=== PATIENT | male | born 1975 | race African-American/Black ===

== ENCOUNTER 2017-10-11 14:34 | Emergency (ER) | payer SELFPAY | END 2017-10-11 17:11 | disposition home or self-care (01) | LOC: ER 14:34 | DX: A59.9 Trichomoniasis, unspecified (principal); I49.8 Other specified cardiac arrhythmias | CPT/HCPCS: 93005; 99284-25 ==

== ENCOUNTER 2020-02-27 08:17 | Emergency (ER) | payer MEDICAID ==
[~2020-02-27] VITALS: Ht 177.8 cm; Wt 100.0 kg
--- NOTE | 2020-02-27 08:44 | PHYS DOC ---
Past Medical History Past Medical History: No Pertinent History Past Surgical History: No Surgical History Smoking Status: Current Every Day Smoker Alcohol Use: Occasionally Drug Use: Marijuana General Adult EDM: Chief Complaint: ABDOMINAL PAIN HPI: HPI: Patient is a 44-year-old otherwise healthy male who presents with a several day history of abdominal pain and bloating. He states it is particularly bad when he eats anything spicy or greasy like a slice of pizza. He states after he eats something like that his belly bloats up and he becomes nauseous. He does have some upper abdominal discomfort. He is felt nauseous but no vomiting he states he has passed gas. He has not had any previous abdominal surgeries. He denies any melena hematemesis or hematochezia. [] Review of Systems: Review of Systems: Constitutional: Denies fever or chills. [] Eyes: Denies change in visual acuity. [] HENT: Denies nasal congestion or sore throat. [] Respiratory: Denies cough or shortness of breath. [] Cardiovascular: Denies chest pain or edema. [] GI: Per HPI [] : Denies dysuria. [] Musculoskeletal: Denies back pain or joint pain. [] Integument: Denies rash. [] Neurologic: Denies headache, focal weakness or sensory changes. [] Endocrine: Denies polyuria or polydipsia. [] Lymphatic: Denies swollen glands. [] Psychiatric: Denies depression or anxiety. [] Heart Score: Risk Factors: Risk Factors: DM, Current or recent (<one month) smoker, HTN, HLP, family history of CAD, obesity. Risk Scores: Score 0 - 3: 2.5% MACE over next 6 weeks - Discharge Home Score 4 - 6: 20.3% MACE over next 6 weeks - Admit for Clinical Observation Score 7 - 10: 72.7% MACE over next 6 weeks - Early Invasive Strategies Allergies: Allergies: Allergies Coded Allergies Type Severity Reaction Last Updated Verified No Known Drug Allergies 11/25/14 No Physical Exam: PE: Constitutional: Well developed, well nourished, no acute distress, non-toxic appearance. [] HENT: Normocephalic, atraumatic, bilateral external ears normal, oropharynx moist, no oral exudates, nose normal. [] Eyes: PERRLA, EOMI, conjunctiva normal, no discharge. [] Neck: Normal range of motion, no tenderness, supple, no stridor. [] Cardiovascular:Heart rate regular rhythm, no murmur [] Lungs & Thorax: Bilateral breath sounds clear to auscultation [] Abdomen: Bowel sounds normal, soft, no tenderness, no masses, no pulsatile masses. [] Skin: Warm, dry, no erythema, no rash. [] Back: No tenderness, no CVA tenderness. [] Extremities: No tenderness, no cyanosis, no clubbing, ROM intact, no edema. [] Neurologic: Alert and oriented X 3, normal motor function, normal sensory function, no focal deficits noted. [] Psychologic: Anxious. [] Current Patient Data: Vital Signs: Vital Signs Date Time Temp Pulse Resp B/P (MAP) Pulse Ox O2 Delivery O2 Flow Rate FiO2 02/27/20 08:25 98.4 89 16 139/91 (107) 97 Room Air 98.4 EKG: EKG: [] Radiology/Procedures: Radiology/Procedures: []PROCEDURE: CT ABD PELV W/ IV CONTRST ONLY CT SCAN OF THE ABDOMEN AND PELVIS WITH IV CONTRAST. History: Abdominal pain Comparison:None. Procedure: Contiguous axial images of the abdomen and pelvis were performed after the administration of 75 cc of Omni 300 IV contrast. Oral contrast: No. Findings: The colon is collapsed and is apparent mild wall thickening. There is no surrounding inflammation. The appendix is normal. The gallbladder appears normal. Liver: Unremarkable Spleen: Unremarkable Pancreas: Unremarkable Adrenal Glands: Unremarkable Kidneys: Unremarkable There is no mass or lymphadenopathy. There is no free air. There is no free fluid. The urinary bladder is collapsed. Impression: The colon is collapsed and not well evaluated. There is apparent mild wall thickening suggesting pancolitis which could be inflammatory or infectious. Course & Med Decision Making: Course & Med Decision Making Pertinent Labs and Imaging studies reviewed. (See chart for details) [ED course: Evaluation reveals a 44-year-old healthy male with a history of postprandial bloating and early satiety. CT scan showed a collapsed colon with mild wall thickening consistent with colitis. I spoke with Dr. Pena her glass etcher helper and we reviewed the findings of his lab studies and we both agreed that this is most likely gastroesophageal reflux versus a colitis. He has not had any diarrhea which would really go against colitis. I am to go ahead and start him on a proton pump inhibitor.] Clau Disclaimer: Clau Disclaimer: This electronic medical record was generated, in whole or in part, using a voice recognition dictation system. Departure Departure Impression: Primary Impression: Gastroesophageal reflux disease Qualified Codes: K21.9 - Gastro-esophageal reflux disease without esophagitis Disposition: HOME, SELF-CARE Condition: STABLE Referrals: NO PCP (PCP) DIGNA PENA MD Call Dr. Pena's office to schedule a follow-up. Patient Instructions: Diet for Gastroesophageal Reflux Disease, Adult, Gastroesophageal Reflux Disease, Adult Scripts Pantoprazole Sodium (PROTONIX ) 40 Mg Tablet. 40 MG PO DAILYAC for GERD for 30 Days, #30 TAB 3 Refills Prov: ZACH MARRERO DO 02/27/20 ZACH MARRERO DO February 27, 2020 08:44
[2020-02-27 08:50] LABS: BASO # 0.1 x10^3/uL (0.0-0.2); BASO % 1 % (0-3); EOS # 0.1 x10^3/uL (0.0-0.7); EOS % 1 % (0-3); HEMATOCRIT 46.3 % (39.0-53.0); HEMOGLOBIN 15.8 g/dL (13.0-17.5); LYMPH # 1.3 x10^3/uL (1.0-4.8); LYMPH % 25 % (24-48); MEAN CORPUSCULAR HEMOGLOBIN 33 pg (25-35); MEAN CORPUSCULAR HGB CONC 34 g/dL (31-37); MEAN CORPUSCULAR VOLUME 95 fL (79-100); MONO # 0.6 x10^3/uL (0.0-1.1); MONO % 11 % (0-9); NEUT # 3.3 x10^3/uL (1.8-7.7); NEUT % 62 % (31-73); PLATELET COUNT 251 x10^3/uL (140-400); RED BLOOD COUNT 4.86 x10^6/uL (4.30-5.70); RED CELL DISTRIBUTION WIDTH 14.4 % (11.5-14.5); WHITE BLOOD COUNT 5.3 x10^3/uL (4.0-11.0)
[2020-02-27 09:07] LABS: CALCIUM 8.4 mg/dL (8.5-10.1); GFR 98.2; POTASSIUM 3.7 mmol/L (3.5-5.1)
[2020-02-27 09:13] LABS: ALBUMIN 3.9 g/dL (3.4-5.0); ALBUMIN/GLOBULIN RATIO 1.2 (1.0-1.7); MAGNESIUM 1.7 mg/dL (1.8-2.4); TOTAL BILIRUBIN 0.4 mg/dL (0.2-1.0); TOTAL PROTEIN 7.2 g/dL (6.4-8.2)
[2020-02-27] MEDS ORDERED: CONTRAST GIVEN. MC PRN (09:30)
[2020-02-27] MEDS ORDERED: IOHEXOL 300 MG/ML 100ML VIAL. IV ONE (09:30)
--- NOTE | 2020-02-27 09:56 | RAD ---
CT SCAN OF THE ABDOMEN AND PELVIS WITH IV CONTRAST. History: Abdominal pain Comparison:None. Procedure: Contiguous axial images of the abdomen and pelvis were performed after the administration of 75 cc of Omni 300 IV contrast. Oral contrast: No. Findings: The colon is collapsed and is apparent mild wall thickening. There is no surrounding inflammation. The appendix is normal. The gallbladder appears normal. Liver: Unremarkable Spleen: Unremarkable Pancreas: Unremarkable Adrenal Glands: Unremarkable Kidneys: Unremarkable There is no mass or lymphadenopathy. There is no free air. There is no free fluid. The urinary bladder is collapsed. Impression: The colon is collapsed and not well evaluated. There is apparent mild wall thickening suggesting pancolitis which could be inflammatory or infectious. End impression PQRS Compliance Statement: One or more of the following individualized dose reduction techniques were utilized for this examination: 1. Automated exposure control 2. Adjustment of the mA and/or kV according to patient size 3. Use of iterative reconstruction technique Electronically signed by: Johnny Mon III, MD (02/27/2020 9:53 AM) [id number]
[2020-02-27] MEDS ORDERED: PANT40TA77 PO (10:50)
[2020-02-27 11:09] VITALS: BP 124/65
== END 2020-02-27 11:16 | disposition home or self-care (01) ==
LOC: ER 08:17
DX: K21.9 Gastro-esophageal reflux disease without esophagitis (principal); F17.200 Nicotine dependence, unspecified, uncomplicated
CPT/HCPCS: 36415; 74177; 80053; 83690; 83735; 85025; 99285; Q9967